=== PATIENT | female | born 1995 | race Caucasian/White ===

== ENCOUNTER 2017-06-11 21:30 | Outpatient (CLI) | payer MEDICAID, SELFPAY ==
[2017-06-11 21:50] VITALS: BMI 33.6
[2017-06-11 22:56] LABS: Color, Urine Yellow (Yellow); Glucose, Dipstick Normal (Normal); Ketone-Dipstick Negative (Negative); Leukocyte Esterase-Dipstick 25 /ul (Negative); Nitrite-Dipstick Negative (Negative); Occult Blood-Urine Negative /ul (Negative); Protein-Dipstick Negative (Negative); Urine Bilirubin Dipstick Negative (Negative); Urine Clarity Sl. Cloudy (Clear); Urine Urobilinogen Normal (Normal)
--- NOTE | 2017-06-17 09:51 | OB.TRI.NOTE ---
History of Present Illness Date of Service: 06/11/17 Was patient seen by the physician?: No Reason For Visit: R/O LABOR Date of Service: 06/11/17 Final RAJINDER: 08/30/17 Final RAJINDER Source: US <20 weeks Gestational age: 29 Weeks and 3 Days History of Present Illness: 28 week IUP c/o abdominal pain like a rock - comes and goes and spotting. She is unsure of timing. Denies leaking of fluid. She notes dec FM, last movement 2d ago. Advised to come to for evaluation to r/o PTL and assess FHR. Home Medications Medication Instructions Recorded Pnv 11-Iron Fum-Folic Acid-Om3 1 each PO DAILY 06/11/17 [Virt-Kerwin Dha Softgel] Allergies azithromycin Allergy (Verified 06/11/17 21:53) Hives NST - FHR Rate Baby A NST Reactive:: Appropriate for gestational age Impression/Plan 28+ week IUP with decreased movement. NST reasuring. No contractions. Released to home with routine follow-up.
== END 2017-06-12 00:10 | disposition home or self-care (01) ==
LOC: WPOUT 21:38 → WP 21:39
PROVIDERS: Visit Provider Obstetrics & Gynecology
DX: O36.8130 Decreased fetal movements, third trimester, not applicable or unspecified (principal); O26.893 Other specified pregnancy related conditions, third trimester; R10.9 Unspecified abdominal pain; O26.853 Spotting complicating pregnancy, third trimester; Z3A.28 28 weeks gestation of pregnancy
CPT/HCPCS: 59025; 59050; 81002; 99218; G0378

== ENCOUNTER → 2017-06-17 09:47 | Outpatient (CLI) | payer MEDICAID, SELFPAY ==
[2017-06-17 11:16] LABS: Hematocrit 34.2 % (37-47); Mean Corp Hgb Conc 32.2 g/gl (32-36); Mean Corpuscular Volume 93.2 fL (81-99); Platelet Count 164 K/mm3 (150-450); RBC Distribution Width CV 13.7 % (11.6-14.6); RBC Distribution Width SD 44.8 fl (35.1-43.9); Red Blood Count 3.67 M/mm3 (4.2-5.4); Scan Indicated on CBC? Y/N NO
[2017-06-17 11:20] LABS: Glucose Challenge Gest 1H 50g 127 mg/dL (70-140)
== END ==
PROVIDERS: Visit Provider Obstetrics & Gynecology
DX: Z34.83 Encounter for supervision of other normal pregnancy, third trimester (principal)
CPT/HCPCS: 36415; 82950; 85027; 86850

== ENCOUNTER → 2017-08-06 16:11 | Outpatient (CLI) | payer MEDICAID, SELFPAY ==
[2017-08-06 18:56] LABS: Group B Strep DNA By PCR Negative (Negative); Internal Control PASS; Probe Check PASS; Specimen Processing Control PASS
== END ==
PROVIDERS: Visit Provider Obstetrics & Gynecology
DX: Z36.85 Encounter for antenatal screening for Streptococcus B (principal)
CPT/HCPCS: 87081; 87653

== ENCOUNTER 2017-08-22 22:08 | Outpatient (CLI) | payer MEDICAID, SELFPAY ==
[2017-08-22 22:27] VITALS: BMI 36.6
--- NOTE | 2017-08-24 08:17 | OB.TRI.NOTE ---
History of Present Illness Date of Service: 08/22/17 Was patient seen by the physician?: No Reason For Visit: DECREASED MOVEMENT Date of Service: 08/22/17 Final RAJINDER: 08/30/17 Gestational age: 38 Weeks and 6 Days History of Present Illness: Presents after working all day with CC of dec FM. Home Medications Medication Instructions Recorded Pnv 11-Iron Fum-Folic Acid-Om3 1 each PO DAILY 06/11/17 [Virt-Kerwin Dha Softgel] Allergies azithromycin Allergy (Verified 08/22/17 22:29) Hives NST - FHR Rate Baby A Baseline: 130-140s accels to 160-170 Variability:: Moderate Accelerations:: 15 x 15 Decelerations:: None, Early NST Reactive:: Yes FHR Category:: Category I Uterine Activity:: Irreg q 1-6 mins Impression/Plan 38 6/7 wk EGA. Dec FM Reactive NST Ucs noted but not felt by pt / painful Sent home. RTO for PNV as planned, return to OB dept if inc sx of labor.
== END 2017-08-22 23:30 | disposition home or self-care (01) ==
LOC: WPOUT 22:15 → WP 22:16
PROVIDERS: Visit Provider Obstetrics & Gynecology
DX: O36.8130 Decreased fetal movements, third trimester, not applicable or unspecified (principal); Z3A.38 38 weeks gestation of pregnancy
CPT/HCPCS: 59025; 59050; 99218; G0378

== ENCOUNTER 2017-09-06 03:06 | Inpatient (IN) | payer MEDICAID, SELFPAY ==
[2017-09-06] VITALS (18 sets, daily range): BP systolic 103–135; BP diastolic 58–79; PULSE 84–129; RESP 14–20; TEMP 36.4–37.3; O2SAT 91–100; BMI 36.9
[2017-09-06 02:56] LABS: ROM Internal Control Test YES-OK TO RESULT pt. (Internal QC)
[2017-09-06 02:57] LABS: ROM Patient Test POSITIVE (Negative)
[2017-09-06] MEDS: Lactated Ringers 1,000 ML 50 ML IV ×2 (03:35→10:00)
[2017-09-06 03:50] LABS: Hemoglobin 11.6 g/dl (12.0-15.0); Mean Corp Hgb Conc 32.2 g/gl (32-36); Mean Corpuscular Hgb 27.4 pg (27.0-32.0); Mean Corpuscular Volume 85.1 fL (81-99); Mean Platelet Vol. 11.5 fl (6.2-12.0); Platelet Count 161 K/mm3 (150-450); RBC Distribution Width SD 46.6 fl (35.1-43.9); Red Blood Count 4.23 M/mm3 (4.2-5.4); White Blood Count 13.6 K/mm3 (4.4-11.0)
[2017-09-06 03:52] LABS: Scan Indicated on CBC? Y/N NO
[2017-09-06 04:09] LABS: Amphetamine Urine VISTA NEGATIVE (<1000 ng/mL); Barbiturate Urine VISTA NEGATIVE (< 200 ng/mL); Benzodiazepine Urine VISTA NEGATIVE (< 200 ng/mL); Cocaine Urine VISTA NEGATIVE (< 300 ng/mL); Ecstacy Urine VISTA NEGATIVE (< 500 ng/mL); Methadone Urine VISTA NEGATIVE (< 300 ng/mL); PCP Urine VISTA NEGATIVE (< 25 ng/mL); THC Urine VISTA NEGATIVE (< 50 ng/mL); Vista UDS pH Range 6
[2017-09-06] MEDS: 0.9% Saline Lock 10 ML Syringe IV ×2 (04:39→08:50)
--- NOTE | 2017-09-06 08:55 | PCM.PN.BLA ---
Progress Note LABOR PROGRESS NOTE Reports contractions are intensifying. The nitrous oxide worked well previously, but no longer. AVSS GEN - NAD, AAO x3 SVE - 3.5/85/-2 anterior and moderate TOCO 3-4/10 min FHR 1120, moderate variability, + accelerations, no deceleration A/P: 22yo G1 @ 41 wga with SROM in labor, Cat I FHR -GBS neg -Discussed additional pain management options including IV medication, epidural. Pt considering. -Expectant management -Maternal and statuses reassuring
--- NOTE | 2017-09-06 08:59 | PN_ITS ---
Progress Note LABOR PROGRESS NOTE Reports contractions are intensifying. The nitrous oxide worked well previously , but no longer. AVSS GEN - NAD, AAO x3 SVE - 3.5/85/-2 anterior and moderate TOCO 3-4/10 min FHR 1120, moderate variability, + accelerations, no deceleration A/P: 22yo G1 @ 41 wga with SROM in labor, Cat I FHR -GBS neg -Discussed additional pain management options including IV medication, epidural. Pt considering. -Expectant management -Maternal and statuses reassuring
[2017-09-06] MEDS: fentaNYL-bupivacaine (epidural) 100 ML BAG EPIDURAL (09:33)
--- NOTE | 2017-09-06 10:08 | PCM.PN.BLA ---
Progress Note LABOR PROGRESS NOTE Comfortable with epidural. She feels well. AVSS - BPs 90s/50s GEN - NAD, AAO x 3 FHR 120, moderate variability, + variable decelerations, no accelerations TOCO - 3/10 min SVE 4.5/85/-2, moderate and anterior A/P: 22yo G1 @ 41wga with SROM in labor, Cat II FHR -FHR changes likely 2/2 BP change from epidural. Anesthesiology consultation obtained -Will continue to monitor further. -Maternal and statuses overall reassuring.
[2017-09-06] MEDS: Amnioinfusion- 0.9% NS 1,000 ML IV.SOLN. 300 ML INTRA-UTER (11:40)
[2017-09-06] MEDS: Oxytocin 30 units/NS 500 ml 30 UNITS/500 ML IV.SOLN 167 UNITS IV (12:08)
--- NOTE | 2017-09-06 12:46 | PCM.IMED.CSR ---
- Problem List (1) 41 weeks gestation of Status: Acute (2) delivery delivered Status: Acute J-Gvcgqsn-Yuxopvgip PostOp Date of Procedure: 09/06/17 Primary Surgeon/Physician: Halie Owens, radiator mechanic: Mazin Martínez Pre-op Diagnosis: - - intolerance to labor Post-Op Diagnosis: - - intolerance to labor Surgery/Procedure Performed: Primary low transverse Section Description of Surgical Findings:: normal tubes noted, ovaries palpably normal MALE with Apgars 8, 9 weight - 3512g Estimated Blood Loss: 750 mL Specimens Removed: placenta Drain: Serna to straight drain Type of Anesthesia: Epidural - Admit VTE Documentation VTE Present on Admission: No VTE Mechan Device Prophylaxis: SCD's VTE Pharm Prophylaxis ordered?: No
--- NOTE | 2017-09-06 12:49 | OP.PN_ITS ---
- Problem List (1) 41 weeks gestation of Status: Acute (2) delivery delivered Status: Acute J-Gkaidss-Qudmlrtdu PostOp Date of Procedure: 09/06/17 Primary Surgeon/Physician: Halie Owens, oliver filter operator: Mazin Martínez Pre-op Diagnosis: - - intolerance to labor Post-Op Diagnosis: - - intolerance to labor Surgery/Procedure Performed: Primary low transverse Section Description of Surgical Findings:: normal tubes noted, ovaries palpably normal MALE with Apgars 8, 9 weight - 3512g Estimated Blood Loss: 750 mL Specimens Removed: placenta Drain: Serna to straight drain Type of Anesthesia: Epidural - Admit VTE Documentation VTE Present on Admission: No VTE Mechan Device Prophylaxis: SCD's VTE Pharm Prophylaxis ordered?: No
--- NOTE | 2017-09-06 12:52 | PCM.OB.CSR ---
- Problem List (1) 41 weeks gestation of Status: Acute (2) delivery delivered Status: Acute Delivery Classification: Stat Final RAJINDER: 08/30/17 Final RAJINDER Source: US <20 weeks Gestational age: 41 Weeks and 0 Days doctor who attended delivery (if requested by OB): Gretchen Traylor Indications: 22 year old 1 at admitted with SROM in latent labor. She progressed from 1.5 to 4.5cm spontaneously h Description of Procedure: Indications: Ms. Gatica 22-year-old 1 admitted at 41 weeks gestational age with spontaneous rupture of membranes at 1/2 cm. She progressed spontaneously to 4-1/2 cm at which time the fuse began to have recurrent prolonged decelerations. This is followed by variable decelerations. A intrauterine pressure catheter was placed with amnioinfusion however the prolonged deceleration recurred. Advised the patient to proceed with section at this time. Risks bleeding pain, bleeding complications including hematoma, hemorrhage possibly requiring dilation curettage or hysterectomy, infection, bowel or bladder injury as well as benefits, indications and alternatives to procedure were reviewed. Patient agreed to proceed and questions were answered to her satisfaction. Procedure: The patient was taken to the operating room and spinal analgesia was administered. She is placed in a dorsal supine position with left lateral tilt. The perineum and abdomen were prepped and draped in sterile fashion. And the spinal was found to be adequate. A Pfannenstiel incision was made using a scalpel and brought down to incise the subcutaneous tissue and rectus fascia at the midline. Subcutaneous tissue was bluntly dissected off the fascia laterally. The fascial incision was dissected laterally and cephalad using curved Green scissors. The superior leaflet of the rectus fascia was grasped using Brent clamps and bluntly dissected and sharply dissected from the underlying rectus muscle. In a similar fashion the inferior rectus fascia was dissected from the underlying muscle. The rectus muscles were bluntly at the midline. The peritoneum was identified and entered [sharply]. The bladder blade was placed into the abdomen and the vesicouterine peritoneal fold identified. The fold was incised and a bladder flap created. Bladder blade was then repositioned to the abdomen. A low transverse hysterotomy was made using the [Metzenbaum scissors] to level of the membranes. The lower uterine segment was thickened thus the hysterotomy was extended using the bandage scissors. The head was elevated and brought to the level of the hysterotomy and the infant delivered revealing vigorous [male] infant. The cord was doubly clamped and cut after 30 seconds. The infant was passed to awaiting [nursery personnel and [place] hospitalist]. The placenta was [expressed] from the uterus and appeared intact on inspection. The uterus was cleared of debris. The hysterotomy was then repaired using 0 Vicryl running lock suture. A second imbricating layer was also placed for additional hemostasis. Yasmin was placed for continued hemostasis. The bladder blade was removed. The anterior cul-de-sac was cleared of debris. The peritoneum and rectus muscles were reapproximated using 2-0 Vicryl running suture. The rectus fascia was closed using 0 Vicryl running suture. The subcutaneous tissue was reapproximated using 2-0 Vicryl. The skin was closed using 4-0 Monocryl subcuticularly by the SILVER HOLLOWARE ASSEMBLER under my supervision. A Mepilex occlusive dressing was placed over the incision. The fundus was firm. The patient was then transferred to the recovery room without complication. Sponge, instrument, and needle counts were correct ?2. Findings: normal tubes noted, ovaries palpably normal MALE with Apgars 8, 9 Infant weight - 3512g Amniotic Membrane Rupture Type: Spontaneous Amniotic Fluid Description: Moderate meconium Placenta Disposition: [facility] Specimen(s) sent to pathology: placenta Drain: Serna to straight drain Cord Entanglement: None Cord Vessel Description: 3 Vessels Esitmated Blood Loss (ml): 750 Gender: Male (1 minute): 8 (5 minute): 9 Delayed cord clamping: Yes Pre-op Antibiotic Given: Ancef 2 grams IV x1 Pt instructed on risks of surgery: Bleeding, Anesthesia Risks, Infection, Injury to surrounding structure(s) including bowel and bladder Complications: None - Admit VTE Documentation VTE Present on Admission: No VTE Mechan Device Prophylaxis: SCD's VTE Pharm Prophylaxis ordered?: No
--- NOTE | 2017-09-06 13:18 | DCINST_ITS ---
Discharge Diet: No Restrictions Discharge Activity: Return to Normal Activity, May not drive while taking narcotic pain medications., May Shower May resume sexual activity in: 6 weeks Lifting Restrictions: 10 lb Call your doctor if your incision/area has: Continuous Slow Oozing, Sudden Increased Bleeding, Increased Pain/ Swelling, Increased Redness, Foul Smelling Discharge Call your doctor if you observe: Fever of 101 or Higher, Inability to urinate, Inability to have a bowel movement, Using more than one pad per hour, Shortness of breath, Chest pain, Calf discomfort, Uncontrolled pain Suture Line Care: Avoid Pulling/Pushing Cleanse incision/area with: Soap & Water Additional Instructions: If you experience any of the following, contact your healthcare provider. * Bleeding that soaks a pad every hour for 2 hours * Fever 100.4 or higher * Unrelieved incision or abdominal pain * Swelling, redness, discharge or bleeding from your incision or episiotomy site * Your incision begins to separate * Problems urinating (including inability to urinate or burning while urinating) . * Visual changes * Severe headache * Flu-like symptoms * Pain or redness in one of both of your breasts * Pain, warmth, tenderness or swelling in your legs, especially the calf area * Frequent nausea and vomiting * Symptoms of depression or anxiety If you experience any of the following, call 911 or go to the nearest Emergency Room. * Chest pain * Problems breathing * Seizure activity * Partial or complete paralysis of a body part, slurred speech, weakness or drooping of the face, or a sudden inability to walk or hold your balance Allergies/Adverse Reactions: Allergies azithromycin Allergy (Verified 09/06/17 02:56) Hives Medications to take at Discharge Pnv 11-Iron Fum-Folic Acid-Om3 [Virt-Kerwin Dha Softgel] 1 each PO DAILY 06/11/17 Docusate Sodium [Colace] 100 mg PO BID PRN PRN #60 cap 09/06/17 Ibuprofen 600 mg PO TID PRN #30 tab 09/06/17 Oxycodone [Oxyir] 1 - 2 tab PO Q4H PRN PRN 3 Days #28 tablet 09/06/17 The following prescriptions were given: Oxycodone [Oxyir] 1 - 2 tab PO Q4H PRN PRN 3 Days #28 tablet PRN Reason: Pain Docusate Sodium [Colace] 100 mg PO BID PRN PRN #60 cap PRN Reason: Constipation Ibuprofen 600 mg PO TID PRN #30 tab PRN Reason: Pain Orders to be completed after discharge: Electric breast pump Location: None Selected Follow-Up: Call to make an appointment with your doctor for an incision check in 1-2 weeks. You will also need a 6 week post- follow up appointment. Please Follow Up With: Андрей Esparza MD When: 7-10 days Please Follow Up With: Андрей Esparza MD When: 6 weeks
--- NOTE | 2017-09-06 14:14 | NURSING ---
pericare and pad changed
[2017-09-06] MEDS: Ketorolac 30 MG/ML Syringe IV ×2 (18:03→23:58)
[2017-09-06 18:51] LABS: Absolute Lymphocyte Count 1.45 X10^3/ul (0.83-4.51); Absolute Neutrophil Count 9.9 X10^3/uL (2.0-7.7); Basophil# 0.01 X10^3/uL; Basophil% 0.1 % (0-1); Eosinophil# 0.01 X10^3/uL; Eosinophils% 0.1 % (0-5); Hematocrit 27.8 % (37-47); Hemoglobin 8.8 g/dl (12.0-15.0); Lymphocyte # 1.45 X10^3/ul (4.0); Lymphocyte % 11.6 % (19-41); Mean Corp Hgb Conc 31.7 g/gl (32-36); Mean Corpuscular Volume 85.3 fL (81-99); Mean Platelet Vol. 11.1 fl (6.2-12.0); Monocyte# 1.05 X10^3/uL; Monocyte% 8.4 % (0-10); Neutrophil # 9.92 X10^3/uL (2.7-7.7); Neutrophil % 79.3 % (47-70); Platelet Count 123 K/mm3 (150-450); RBC Distribution Width SD 47.2 fl (35.1-43.9); Red Blood Count 3.26 M/mm3 (4.2-5.4); White Blood Count 12.5 K/mm3 (4.4-11.0)
[2017-09-06 18:54] LABS: POSITIVE COUNT NO; POSITIVE DIFFERENTIAL NO; POSITIVE MORPHOLOGY NO
[2017-09-06] MEDS: Lactated Ringers 1,000 ML 100 ML IV (19:16)
[2017-09-06] MEDS: Cefazolin 2 GM in 0.9% Normal Saline 100 ML IV (20:11)
[2017-09-06 23:57] LABS: Absolute Lymphocyte Count 1.35 X10^3/ul (0.83-4.51); Absolute Neutrophil Count 10.9 X10^3/uL (2.0-7.7); Basophil# 0.01 X10^3/uL; Basophil% 0.1 % (0-1); Eosinophil# 0.02 X10^3/uL; Eosinophils% 0.1 % (0-5); Hematocrit 26.4 % (37-47); Hemoglobin 8.4 g/dl (12.0-15.0); Lymphocyte # 1.35 X10^3/ul (4.0); Mean Corp Hgb Conc 31.8 g/gl (32-36); Mean Corpuscular Hgb 27.6 pg (27.0-32.0); Mean Corpuscular Volume 86.8 fL (81-99); Mean Platelet Vol. 11.3 fl (6.2-12.0); Monocyte# 1.14 X10^3/uL; Monocyte% 8.5 % (0-10); Neutrophil # 10.86 X10^3/uL (2.7-7.7); Neutrophil % 80.9 % (47-70); Platelet Count 123 K/mm3 (150-450); RBC Distribution Width CV 14.9 % (11.6-14.6); RBC Distribution Width SD 45.7 fl (35.1-43.9); Red Blood Count 3.04 M/mm3 (4.2-5.4); White Blood Count 13.4 K/mm3 (4.4-11.0)
[2017-09-07] VITALS (8 sets, daily range): BP systolic 107–135; BP diastolic 56–72; PULSE 82–127; RESP 16–20; TEMP 36.5–37.4; O2SAT 97–98
[2017-09-07 00:04] LABS: POSITIVE COUNT NO; POSITIVE DIFFERENTIAL NO; POSITIVE MORPHOLOGY NO
[2017-09-07] MEDS: Cefazolin 2 GM in 0.9% Normal Saline 100 ML IV (03:41)
[2017-09-07] MEDS: Ketorolac 30 MG/ML Syringe IV ×4 (05:48→23:54)
[2017-09-07 06:12] LABS: Hematocrit 28.3 % (37-47); Mean Corp Hgb Conc 31.8 g/gl (32-36); Mean Corpuscular Hgb 27.3 pg (27.0-32.0); Mean Corpuscular Volume 85.8 fL (81-99); Mean Platelet Vol. 11.3 fl (6.2-12.0); Platelet Count 132 K/mm3 (150-450); RBC Distribution Width CV 15.4 % (11.6-14.6); RBC Distribution Width SD 48.1 fl (35.1-43.9); White Blood Count 14.3 K/mm3 (4.4-11.0)
[2017-09-07 06:13] LABS: Scan Indicated on CBC? Y/N NO
--- NOTE | 2017-09-07 07:02 | PN.OBGYN_ITS ---
Patient Problems: Active and Suspected Problems 41 weeks gestation of (Acute) delivery delivered (Acute) Subjective: Denies headache, vision changes, lightheadedness, dizziness, chest pain, shortness of breath, palpitations, bloating. Denies heavy lochia or severe abdominal pain. She notes her pain is minimal and well controlled. No flatus yet. She has been out of bed already. Infant is nursing well. Objective: AVSS - Physical Exam General: Alert, Oriented x3, Cooperative, No apparent distress HEENT: Atraumatic, Normocephalic Lungs: Clear to auscultation, Normal air movement Cardiovascular: Regular rate, Regular Rhythm, Normal S1, Normal S2, - - HR 98 bpm by my exam Abdomen: Soft, Non Tender, Non-Distended, Hypoactive Bowel Sounds, - - Incisional dressing c/d/i Extremities: No edema, No Calf Tenderness Neurological: Neuro grossly intact Psych/Mental Status: Normal Affect, Appropriate, Alert and oriented to time, place, person, mood and affect Vital Signs Temp Pulse Resp BP Pulse Ox 98 F 114 H 16 107/58 L 98 09/07/17 05:05 09/07/17 06:33 09/07/17 06:33 09/07/17 03:07 09/07/17 06:33 Oxygen Delivery Method Room Air Weight: 100.8 kg Body Mass Index (BMI) 36.9 Intake and Output for Last 24 Hours 09/05/17 09/06/17 09/07/17 23:59 23:59 23:59 Intake Total 8978 / 8978 989 / 989 Output Total 2625 / 2625 1600 / 1600 Balance 6353 / 6353 -611 / -611 Laboratory Tests Past 24 Hrs 09/06/17 09/06/17 09/06/17 14:00 18:30 23:33 WBC 12.5 H 13.4 H RBC 3.26 L 3.04 L Hgb 8.8 L 8.4 L Hct 27.8 L 26.4 L MCV 85.3 86.8 MCH 27.0 27.6 MCHC 31.7 L 31.8 L RDW 15.0 H 14.9 H RDW Differential 47.2 H 45.7 H Plt Count 123 L 123 L MPV 11.1 11.3 Immature Gran % (Auto) 0.500 0.400 Neut % (Auto) 79.3 H 80.9 H Lymph % (Auto) 11.6 L 10.0 L Cuming % (Auto) 8.4 8.5 Eos % (Auto) 0.1 0.1 Baso % (Auto) 0.1 0.1 Absolute Neuts (auto) 9.9 H 10.9 H Absolute Lymphs (auto) 1.45 1.35 Total Counted Not Reportable Not Reportable Screen NEGATIVE Baby's Blood Type B POSITIVE Baby's YADIRA NEGATIVE 09/07/17 06:00 WBC 14.3 H RBC 3.30 L Hgb 9.0 L Hct 28.3 L MCV 85.8 MCH 27.3 MCHC 31.8 L RDW 15.4 H RDW Differential 48.1 H Plt Count 132 L MPV 11.3 Immature Gran % (Auto) Neut % (Auto) Lymph % (Auto) Cuming % (Auto) Eos % (Auto) Baso % (Auto) Absolute Neuts (auto) Absolute Lymphs (auto) Total Counted Screen Baby's Blood Type Baby's YADIRA Medical Necessity - Tobacco Use Smoking Status: Never smoker Assessment/Plan Active and Suspected Problems 41 weeks gestation of (Acute) delivery delivered (Acute) 22yo POD#1 s/p PLTCS with post-op anemia -H/H stable - pt asymptomatic. UO adequate. No evidence of hematoma or other occult bleed. - -Routine postop care -OOB today -AB negative - infant B positive, pt for Rhogam -Rubella immune
[2017-09-07] MEDS: 0.9% Saline Lock 10 ML Syringe IV ×4 (08:56→23:53)
[2017-09-07] MEDS: Senna/Docusate Sodium 1 Tablet PO (08:56)
[2017-09-07] MEDS: Prenatal Vits Tablet 1 TABLET PO (08:57)
[2017-09-07] MEDS: oxyCODONE 5 MG Tablet PO ×2 (12:20→22:01)
[2017-09-07] MEDS: Acetaminophen 325 MG Tablet PO (17:53)
[2017-09-07 20:43] LABS: Absolute Lymphocyte Count 1.29 X10^3/ul (0.83-4.51); Absolute Neutrophil Count 15.8 X10^3/uL (2.0-7.7); Basophil# 0.01 X10^3/uL; Basophil% 0.1 % (0-1); Eosinophil# 0.05 X10^3/uL; Eosinophils% 0.3 % (0-5); Hematocrit 28.3 % (37-47); Lymphocyte # 1.29 X10^3/ul (4.0); Lymphocyte % 6.9 % (19-41); Mean Corp Hgb Conc 31.8 g/gl (32-36); Mean Corpuscular Hgb 27.3 pg (27.0-32.0); Mean Corpuscular Volume 85.8 fL (81-99); Mean Platelet Vol. 10.8 fl (6.2-12.0); Monocyte# 1.43 X10^3/uL; Monocyte% 7.7 % (0-10); Neutrophil # 15.79 X10^3/uL (2.7-7.7); Neutrophil % 84.5 % (47-70); Platelet Count 182 K/mm3 (150-450); RBC Distribution Width CV 15.5 % (11.6-14.6); RBC Distribution Width SD 48.5 fl (35.1-43.9); White Blood Count 18.7 K/mm3 (4.4-11.0)
[2017-09-07 20:44] LABS: POSITIVE COUNT NO; POSITIVE DIFFERENTIAL NO; POSITIVE MORPHOLOGY NO
[2017-09-08 02:27] VITALS: BP 110/62; PULSE 96; RESP 16; TEMP 36.8; O2SAT 98
[2017-09-08] MEDS: Senna/Docusate Sodium 1 Tablet PO (06:48)
[2017-09-08] MEDS: Ketorolac 30 MG/ML Syringe IV ×2 (06:49→11:52)
[2017-09-08] MEDS: 0.9% Saline Lock 10 ML Syringe IV (06:49)
--- NOTE | 2017-09-08 07:54 | EKG12_ITS ---
Test Reason : TACHYCARDIA Blood Pressure : / mmHG Vent. Rate : 105 BPM Atrial Rate : 105 BPM P-R Int : 130 ms QRS Dur : 074 ms QT Int : 324 ms P-R-T Axes : 026 022 031 degrees QTc Int : 428 ms Sinus tachycardia Otherwise normal ECG No previous ECGs available Confirmed by DARNELL BISHOP, NICOLLE ([id number]), city editor SARKIS GODFREY ([id number]) on 09/11/2017 2:24:29 PM Referred By: AMADOR Confirmed By:NICOLLE PATRICK MD
--- NOTE | 2017-09-08 07:59 | PN.OBGYN_ITS ---
Patient Problems: Active and Suspected Problems 41 weeks gestation of (Acute) delivery delivered (Acute) Subjective: Pain controlled. She is ambulating without difficulty. Passing flatus, but no bowel movement yet. Denies lightheadedness or palpitations. Infant is nursing well. Denies heavy lochia. Objective: AVSS - Physical Exam General: Alert, Oriented x3, Cooperative, No apparent distress HEENT: Atraumatic, Normocephalic Lungs: Clear to auscultation, Normal air movement Cardiovascular: Regular rate, Regular Rhythm, Normal S1, Normal S2 Abdomen: Soft, Non Tender, Non-Distended, - - Incision dry and intact with minimal surrounding ecchymosis. No drainage on attempted expression. Extremities: No edema, No Calf Tenderness Neurological: Neuro grossly intact Psych/Mental Status: Normal Affect, Appropriate, Alert and oriented to time, place, person, mood and affect Vital Signs Temp Pulse Resp BP Pulse Ox 98.3 F 96 16 110/62 98 09/08/17 02:27 09/08/17 02:27 09/08/17 02:27 09/08/17 02:27 09/08/17 02:27 Oxygen Delivery Method Room Air Weight: 100.8 kg Body Mass Index (BMI) 36.9 Intake and Output for Last 24 Hours 09/06/17 09/07/17 09/08/17 23:59 23:59 23:59 Intake Total 8978 / 8978 989 / 989 Output Total 2625 / 2625 3700 / 3700 Balance 6353 / 6353 -2711 / -2711 Laboratory Tests Past 24 Hrs 09/07/17 20:30 WBC 18.7 H RBC 3.30 L Hgb 9.0 L Hct 28.3 L MCV 85.8 MCH 27.3 MCHC 31.8 L RDW 15.5 H RDW Differential 48.5 H Plt Count 182 MPV 10.8 Immature Gran % (Auto) 0.500 Neut % (Auto) 84.5 H Lymph % (Auto) 6.9 L Finney % (Auto) 7.7 Eos % (Auto) 0.3 Baso % (Auto) 0.1 Absolute Neuts (auto) 15.8 H Absolute Lymphs (auto) 1.29 Total Counted Not Reportable Medical Necessity - Tobacco Use Smoking Status: Never smoker Assessment/Plan Active and Suspected Problems 41 weeks gestation of (Acute) delivery delivered (Acute) 22yo POD#2 s/p PLTCS with post-op anemia -H/H stable - pt asymptomatic. No evidence of hematoma or other occult bleed. EKG ordered. Leukocytosis likely 2/2 delivery - -Routine postop care -AB negative - B positive, pt for Rhogam -Rubella immune
[2017-09-08 08:00] VITALS: BP 112/67; PULSE 102; RESP 18; TEMP 36.8
[2017-09-08] MEDS: oxyCODONE 5 MG Tablet PO ×2 (09:55→16:53)
[2017-09-08] MEDS: Prenatal Vits Tablet 1 TABLET PO (11:52)
[2017-09-08 13:38] VITALS: BP 110/60; PULSE 121; RESP 16; TEMP 36.9; O2SAT 99
--- NOTE | 2017-09-08 15:40 | CASEMGMT ---
Social Work Note Labor and Delivery Unit Social Work Assessment completed. Refer to documentation below for further details. Date of Referral: 09/08/17 Time of Referral:0754 Referred By: Dr. Owens Date of Intervention: 09/08/2017 Time of Intervention: 1540 Reason for Referral: positive for marijuana early in History obtained from: Medical record and mother of baby (MOB) Household composition: MOB and Father of baby (FOB) live in own apartment since August, prior to that had lived with roommates. Patient's parent/guardian status: MOB reports has been with FOB for 2 years. MOB denies any safety concerns with FOB, or any history of abuse. MOB is 21 and FOB is 23. Medical History: MOB is G2, P0 to 1 after delivering . MOB reports first trimester termination in 2015. MOB with care starting at 17 weeks. born weighing 7 pounds 12 ounces, Apgars 8 and 9 at 1 and 5 minutes of life. Educational Status: MBO graduated high school and has 1 year of college experience. No reports of any learning or comprehension issues. 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 FOB works in [employer]. Infant Supplies: MOB report to have needed baby supplies including car seat, crib, pack-n-play, breast pump, clothing, diapers, wipes. Childcare/Caregiver(s): MOB Transportation: No reported issues. Programs/Agencies Involved: JENIFER just got WIC recently and has the medical card through [employer]. MOB reports interest in food assistance benefit through [employer] and plans to inquire about this. MOB denies any other agency involvement. Children Services/Legal Issues: not applicable. First child for both MOB and FOB. Behavioral Health Issues: MBO denies any history of depression, anxiety, or other mental health issues. MOB denies any history of thoughts of suicide. MOB denies alcohol usage during or outside of . MOB denies any history of use of heroin, cocaine, methamphetamines, or nonprescribed narcotics. MOB admits to history of marijuana usage. MOB report used at beginning of and quit, but then around Thanksgiving had a flare of nausea and used marijuana again. MOB reports March 2017 was the last use of marijuana. MOB reports intent to abstain from marijuana use in the future. MOB had one positive drug screen in March 2017, then negative on 09-06-17. Babys urine drug screen negative and meconium pending. Family/Social Stressors: MOB moved in August, though reports this was not too stressful. MOB reports history of termination of first , which was in part due to some issues happening in personal life and nonsupport from family members about the . MOB reports she and FOB were not really happy about the decision made and when found about this were happy to be again. MOB reports did not tell parents until May about , as MOB was not certain how the family would support MOB and FOB. MOB reports since , MOBs parents have been visiting and seem to be supportive. Support Systems: MOB reports FOB is a support for both practical and emotional. MOB reports to have a few friends who are also good emotional supports. MOB does have family in the area who can help out with the baby if needed. Depression/Shaken Baby/Safe Sleeping: MOB educated to safe sleeping and shaken baby. Educated to depression and anxiety, risk factors, and importance of seeking out support should symptoms arise. MOB reports to feel to have some good supports that can reach out to should symptoms arise. ASSESSMENT: MOB pleasant, cooperative, and nondefensive during conversation with health social work professor. MOB with bright affect and normal eye contact. MOB held baby, was attentive and gentle; smiled at baby. MOB reports intent to abstain from future marijuana use. MOB also accepted social work education that should the meconium drug screen come back positive for substance then a case with children services would likely occur. Educated MOB what likely to expect with children services involvement. MOB accepted information without issue. MOB reports to have needed baby supplies, to have support at home going, and reports will look into food assistance with [employer]. MOB reports the biggest struggle was to get [place] as MOB was afraid that would be judged. [place] that found [place] welcoming and is happy to have the assistance right now. MOB denies any needs or concerns with home going. PLAN: MOB and baby to home at time of discharge. MOB has been given packet on mood and anxiety disorders. Packet given including [facility], Help Me Grow, moms support group, shaken baby and safe sleeping. Will be monitoring for meconium drug screen results. No other services requested or indicated. -VERNON Nielson, V BELT FINISHER
[2017-09-08 20:59] VITALS: BP 122/78; PULSE 132; RESP 18; TEMP 37.1; O2SAT 96
[2017-09-09] MEDS: Ibuprofen 600 MG Tablet PO ×2 (03:35→13:46)
[2017-09-09 03:38] VITALS: BP 112/67; PULSE 117; RESP 16; TEMP 37; O2SAT 97
--- NOTE | 2017-09-09 07:52 | PCM.PN.OB ---
Patient Problems: Active and Suspected Problems 41 weeks gestation of (Acute) delivery delivered (Acute) Subjective: POD#3 primary C section for nonreassuring FHT Doing well. states sent baby to nursery last night so she could get some rest. hopes to go home later today. Car seat questions. Still to have baby bath demo. - Physical Exam General: Alert, Oriented x3, Cooperative, No apparent distress HEENT: Atraumatic Neck: Supple Abdomen: Soft - Fundus firm NT at approx 1-2 cm inferior to umbilicus Extremities: No edema Skin: Incision - Steristrips CDI. intact Neurological: Cranial nerves II-XII grossly intact Psych/Mental Status: Normal Affect Vital Signs Temp Pulse Resp BP Pulse Ox 98.6 F 117 H 16 112/67 97 09/09/17 03:38 09/09/17 03:38 09/09/17 03:38 09/09/17 03:38 09/09/17 03:38 Oxygen Delivery Method Room Air Weight: 100.8 kg Body Mass Index (BMI) 36.9 Intake and Output for Last 24 Hours 09/07/17 09/08/17 09/09/17 23:59 23:59 23:59 Intake Total 989 / 989 Output Total 3700 / 3700 Balance -2711 / -2711 Medical Necessity - Tobacco Use Smoking Status: Never smoker Assessment/Plan Active and Suspected Problems 41 weeks gestation of (Acute) delivery delivered (Acute) POD#3 Primary C/S nonreassuring FHT Home today. Reviewed dischg instructions, incision care. RTO in 2 wk for postop incision check, Dr. Esparza.
--- NOTE | 2017-09-09 08:00 | DS.PCM_ITS ---
Discharge Date and Diagnosis - Problem List Patient Problems: Active and Suspected Problems 41 weeks gestation of (Acute) delivery delivered (Acute) Date of Admission: 09/06/17 - 41 wk Date of Discharge: 09/09/17 - s/p C/S nonreassuring FHT - Primary Discharge Diagnosis Active and Suspected Problems 41 weeks gestation of (Acute) delivery delivered (Acute) Hospital Course and Treatment Operations: - - Primary C section Summary of Care Provided: The patient is a 22-year-old 1 admitted at 41 weeks gestational age with spontaneous rupture of membranes at 1/2 cm. She progressed spontaneously to 4-1/2 cm at which time the fetus began to have recurrent prolonged decelerations. This is followed by variable decelerations. A intrauterine pressure catheter was placed with amnioinfusion however the prolonged deceleration recurred. Advised the patient to proceed with section C section performed without complication on 09/06/17 : delivered a bland viable male Ap 8/9 and 3512 gm Postop course with intermittent maternal tachycardia. Hgb stable at 9 g/dl. on serial CBCs. EKG ordered. AFEB Requested dischg POD#3 D/C home POD#3 stable condition with benign exam. RTO in 2 wk for postop check , prn sooner. Discharge Diet: No Restrictions Discharge Activity: Return to Normal Activity, May not drive while taking narcotic pain medications., May Shower May resume sexual activity in: 6 weeks Call your doctor if your incision/area has: Continuous Slow Oozing, Sudden Increased Bleeding, Increased Pain/ Swelling, Increased Redness, Foul Smelling Discharge Call your doctor if you observe: Fever of 101 or Higher, Inability to urinate, Inability to have a bowel movement, Using more than one pad per hour, Shortness of breath, Chest pain, Calf discomfort, Uncontrolled pain Suture Line Care: Avoid Pulling/Pushing Cleanse incision/area with: Soap & Water Home Medications: Medications to take at Discharge Pnv 11-Iron Fum-Folic Acid-Om3 [Virt-Kerwin Dha Softgel] 1 each PO DAILY 06/11/17 Docusate Sodium [Colace] 100 mg PO BID PRN PRN #60 cap 09/06/17 Ibuprofen 600 mg PO TID PRN #30 tab 09/06/17 Oxycodone [Oxyir] 1 - 2 tab PO Q4H PRN PRN 3 Days #28 tablet 09/06/17 Ferrous Sulfate 325 mg PO BIDCM #60 tab 09/07/17 Following Prescrptions Were Given to Patient: Oxycodone [Oxyir] 1 - 2 tab PO Q4H PRN PRN 3 Days #28 tablet PRN Reason: Pain Docusate Sodium [Colace] 100 mg PO BID PRN PRN #60 cap PRN Reason: Constipation Ferrous Sulfate 325 mg PO BIDCM #60 tab Ibuprofen 600 mg PO TID PRN #30 tab PRN Reason: Pain Other Amb Orders: Electric breast pump Location: None Selected Primary Care Physician: Care Physician,No Primary [Primary Care Provider] - Please Follow Up With: Андрей Esparza MD When: 7-10 days Please Follow Up With: Андрей Esparza MD When: 6 weeks Medical Necessity - Tobacco Use Smoking Status: Never smoker Meaningful Use Info Meaningful Use Diagnoses (Choose all that apply): None applicable
[2017-09-09 08:30] VITALS: BP 116/60; PULSE 78; RESP 16; TEMP 36.6; O2SAT 99
[2017-09-09] MEDS: oxyCODONE 5 MG Tablet PO (08:33)
[2017-09-09] MEDS: Prenatal Vits Tablet 1 TABLET PO (12:36)
[2017-09-09 13:00] VITALS: BP 112/70; PULSE 83; RESP 16; TEMP 36.9; O2SAT 99
--- NOTE | 2017-09-18 11:54 | CASEMGMT ---
Social Work Labor and Delivery Unit Referral made to [facility] ([facility]) today, based on results in baby's meconium drug screen. Refer to baby's chart for details of referral. Spoke with Lyndsey in the intake department at [facility]. No other services requested or indicated. -CHAR Nielson, DIVIDING MACHINE OPERATOR HELPER
== END 2017-09-09 15:25 | disposition home or self-care (01) | DRG 370 ==
LOC: WPOUT 03:09 → WP 05:42
PROVIDERS: Obstetrics & Gynecology; Admitting Provider Obstetrics & Gynecology; Visit Provider Obstetrics & Gynecology
DX: O76 Abnormality in fetal heart rate and rhythm complicating labor and delivery (principal); O99.02 Anemia complicating childbirth; O48.0 Post-term pregnancy; Z37.0 Single live birth; Z3A.41 41 weeks gestation of pregnancy; R00.0 Tachycardia, unspecified; D64.89 Other specified anemias
CPT/HCPCS: 59025; 59050; 76815; 80307; 84112; 85025; 85027; 85461; 86850; 86900; 90384; 93005; 94762; 99218; J7030; J7120; A4216; G0378; J2790

== ENCOUNTER 2017-09-15 18:25 | Outpatient (CLI) | payer MEDICAID, SELFPAY | END 2017-09-15 19:00 | disposition home or self-care (01) | LOC: WPOUT 18:35 → WP 18:37 | PROVIDERS: Visit Provider Obstetrics & Gynecology | DX: O91.22 Nonpurulent mastitis associated with the puerperium (principal) | CPT/HCPCS: 96152 ==

== ENCOUNTER → 2017-10-28 16:48 | Outpatient (CLI) | payer MEDICAID, SELFPAY ==
[2017-10-28 17:53] LABS: Progesterone Level 0.04 ng/mL (See Comment)
[2017-10-28 18:00] LABS: Pregnancy, Serum, hCG Quali. NEGATIVE Negative (0-9 Nonpreg)
== END ==
PROVIDERS: Visit Provider Obstetrics & Gynecology
DX: Z30.430 Encounter for insertion of intrauterine contraceptive device (principal)
CPT/HCPCS: 36415; 84144; 84703

== ENCOUNTER → 2017-10-30 14:42 | Outpatient (CLI) | payer MEDICAID, SELFPAY ==
[2017-10-30 17:34] LABS: Chlamydia Trachomatis by PCR Negative (Negative); Neisserai gonorrhoeae by PCR Negative (Negative); Probe Check PASS; Sample Adequacy Control PASS; Specimen Processing Control PASS
[2017-11-06 12:20] LABS: HPV Reflexed? NOT INDICATED
== END ==
PROVIDERS: Visit Provider Obstetrics & Gynecology
DX: Z12.4 Encounter for screening for malignant neoplasm of cervix (principal)
CPT/HCPCS: 87491; 87591; 88175; G0145